=== PATIENT | male | born 1955 | race Caucasian/White ===

== ENCOUNTER → 2025-05-04 10:36 | Outpatient (REF) | payer BC, SELFPAY | LOC: RAD 10:36 | PROVIDERS: ATTENDING PHYSICIAN Family Medicine | DX: R07.9 Chest pain, unspecified (principal); M54.6 Pain in thoracic spine | CPT/HCPCS: 71046; 72072 ==

== ENCOUNTER → 2025-08-30 16:24 | Outpatient (REF) | payer BC, SELFPAY | LOC: RAD 16:24 | PROVIDERS: ATTENDING PHYSICIAN Family Medicine | DX: M25.511 Pain in right shoulder (principal); M25.512 Pain in left shoulder | CPT/HCPCS: 73030 ==